=== PATIENT | male | born 1960 ===

== ENCOUNTER → 2018-01-19 | Outpatient (CLI) | payer OTHER ==
[2018-01-19 16:24] LABS: Albumin 3.8 g/dL (3.4-5.0); Anion Gap 4 (5-15); Calcium 8.7 mg/dL (8.5-10.1); Carbon Dioxide 29 mmol/L (21-32); Chloride 104 mmol/L (98-107); Glucose 81 mg/dL (74-106); Potassium 4.6 mmol/L (3.5-5.1); Sodium 137 mmol/L (136-145)
[2018-01-19 16:28] LABS: Alanine Aminotransferase 27 U/L (16-61); Alkaline Phosphatase 82 U/L (45-117); Aspartate Aminotransferase 42 U/L (15-37); Bilirubin, Total 0.7 mg/dL (0.2-1.0); Blood Urea Nitrogen 29 mg/dL (7-18); CRP High Sensitivity < 0.02 mg/dL (< 0.3); GFR African American 57 mL/min; GFR Non-African American 47 mL/min; Total Protein 7.8 g/dL (6.4-8.2)
[2018-01-19 16:31] LABS: Hemoglobin 13.4 g/dL (13.5-17.5); Mean Corpuscular Volume 95.1 fL (80.0-100.0); White Blood Cell 3.1 10^3/uL (4.4-10.8)
[2018-01-19 16:33] LABS: Hematocrit 39.2 % (41.0-53.0); INR 1.59 (0.9-1.15); Mean Corpuscular Hemoglobin 32.5 pg (28.0-32.0); Mean Corpuscular Hgb Conc. 34.2 g/dL (32.0-36.0); Partial Thromboplastin Time 37.3 sec (23.78-33.04); Platelet Count (auto) 21 10^3/uL (140-450); Prothrombin Time 16.6 sec (9.27-12.13); Red Blood Cells 4.13 10^6/uL (4.5-5.90); Red Cell Distribution Width 17.7 % (11.8-14.3)
[2018-01-19 16:37] LABS: Band Neutrophils % (manual) 0; Basophils % (manual) 0 (0.0-2.0); Blast Cells 0; Metamyelocytes % 0; Myelocytes % 0; Promyelocytes % 0; Reactive Lymphocytes 0
[2018-01-19 18:15] LABS: Eosinophils % (manual) 1 (0-7); Lymphocytes % (manual) 47 (10.0-50.0); Monocytes % (manual) 16 (0-12)
== END | disposition home or self-care (01) ==
LOC: LAB 15:26
DX: F60.3 Borderline personality disorder (principal)
CPT/HCPCS: 36415; 80053; 83036; 85007; 85027; 85610; 85652; 85730; 86141